=== PATIENT | male | born 1985 | race Caucasian/White ===

== ENCOUNTER 2024-11-02 17:22 | Inpatient (IN) | payer OTHER ==
[2024-11-02 17:48] VITALS: BMI 19.2
[2024-11-02] MEDS ORDERED: BISMUTH SUBSALICYLATE 524 MG/30 ML PO PRN (18:31)
[2024-11-02] MEDS ORDERED: NALOXONE (NARCAN) HCL 4 MG/0.1 ML SPRAY NS PRN (18:31)
[2024-11-02] MEDS ORDERED: ONDANSETRON *ODT* 4 MG TABLET SL PRN (18:31)
[2024-11-02] MEDS ORDERED: guaiFENesin 600 MG TABLET.ER (FP) PO PRN (18:31)
[2024-11-02] MEDS ORDERED: BENZONATATE 200 MG CAPSULE PO PRN (18:31)
[2024-11-02] MEDS ORDERED: IBUPROFEN 400 MG TABLET (FP) PO PRN (18:31)
[2024-11-02] MEDS ORDERED: ACETAMINOPHEN 325 MG TABLET (FP) PO PRN (18:31)
[2024-11-02] MEDS ORDERED: NICOTINE POLACRILEX 2 MG LOZENGE BC PRN (18:31)
[2024-11-02] MEDS ORDERED: IBUPROFEN 600 MG TABLET (FP) PO PRN (18:31)
[2024-11-02] MEDS ORDERED: NICOTINE POLACRILEX 2 MG GUM BUC PRN (18:31)
[2024-11-02] MEDS ORDERED: MAGNESIUM HYDROX 2400MG/30ML ORAL SUSPENSION 30 ML CUP PO PRN (18:31)
[2024-11-02] MEDS ORDERED: BENZOCAINE/MENTHOL (CHLORASEPTIC ) LOZENGE MM PRN (18:31)
[2024-11-02] MEDS ORDERED: LOPERAMIDE HCL 2 MG CAPSULE PO PRN (18:31)
[2024-11-02] MEDS ORDERED: DICYCLOMINE HCL 10 MG CAPSULE PO PRN (18:31)
[2024-11-02] MEDS ORDERED: POLYETHYLENE GLYCOL (HEALTHYLAX) 3350 17 GM PACKET PO PRN (18:31)
[2024-11-02] MEDS ORDERED: MAG HYDROX/AL HYDROX/SIMETH 30 ML UNIT-DOSE CUP PO PRN (18:31)
[2024-11-02] MEDS: MELATONIN 5 MG TABLETS PO SCH (22:20)
[2024-11-02] MEDS: THIAMINE 100 MG TABLET PO SCH (22:20)
[2024-11-03] MEDS ORDERED: MELATONIN 5 MG TABLETS PO PRN (09:32)
[2024-11-03] MEDS: PRENATAL VITAMINS W/ FOLIC ACID TABLET (FP) PO SCH (09:59)
[2024-11-03] MEDS: NICOTINE 7 MG/24 HOURS TOPICAL PATCH TD SCH (09:59)
[2024-11-03 11:33] LABS: MCHC 33.4 g/dl (32.3-36.5); MEAN CELL VOLUME 100.8 fl (79.0-92.2); MEAN PLT VOLUME 10.2 fl (9.4-12.4); RDW 13.9 % (12.0-15.6)
[2024-11-03 13:10] LABS: CO2 30 mmol/L (21-32); GLUCOSE,RANDOM 80 mg/dL (74-106)
[2024-11-03 13:13] LABS: SGOT/AST 31 U/L (15-37)
[2024-11-03 13:14] LABS: TOT PROT 7.2 g/dl (6.4-8.2)
[2024-11-03 13:15] LABS: SGPT/ALT 25 U/L (13-61)
[2024-11-03 13:16] LABS: CREATININE 0.8 mg/dL (0.55-1.3)
[2024-11-03 13:18] LABS: ALK PHOS 35 U/L (45-117)
[2024-11-03 16:00] LABS: HCV DIAGNOSTIC IN-HOUSE W/RFLX NON-REACTIVE (NONREACTIVE)
[2024-11-03 16:03] LABS: HIV INTERPRETATION NEGATIVE (NEGATIVE)
[2024-11-04] MEDS: NICOTINE 14 MG/24 HOURS TOPICAL PATCH TD SCH (10:33)
[2024-11-04] MEDS: METHOCARBAMOL 500 MG TABLET PO PRN (10:35)
[2024-11-04] MEDS ORDERED: NICOTINE 21 MG/24 HOURS TOPICAL PATCH TD SCH (12:36)
[2024-11-04] MEDS: hydrOXYzine PAMOATE 25 MG CAPSULE (FP) PO PRN (12:43)
[2024-11-04 13:36] VITALS: BP 139/81; PULSE 69; RESP 15; TEMP 97.8
== END 2024-11-04 14:18 | disposition home or self-care (01) | DRG 775 ==
LOC: YASAS 17:22 → Y6N 21:04
PROVIDERS: ADMIT Neuromusculoskeletal Medicine & OMM; ATTEND Allergy & Immunology
PROC: HZ2ZZZZ Detoxification Services for Substance Abuse Treatment (ICD-10-PCS; principal; 2024-11-02)
DX: F10.230 Alcohol dependence with withdrawal, uncomplicated (principal); F17.210 Nicotine dependence, cigarettes, uncomplicated; F10.282 Alcohol dependence with alcohol-induced sleep disorder; F10.280 Alcohol dependence with alcohol-induced anxiety disorder; F10.24 Alcohol dependence with alcohol-induced mood disorder; D64.9 Anemia, unspecified; K21.9 Gastro-esophageal reflux disease without esophagitis
CPT/HCPCS: 36415; 80053; 80305; 80307; 85027; 86780; 86803; 87389; 93005; 93010